=== PATIENT | female | born 1970 | race Caucasian/White ===

== ENCOUNTER 2020-12-25 11:04 | Day surgery (SDC) | payer SELFPAY ==
[2020-12-24 08:44] VITALS: BMI 35.6
[2020-12-25] MEDS ORDERED: SCOPOLAMINE HYDROBROMIDE 1 PATCH PATCH.TD72 ONE (12:22)
[2020-12-25] MEDS ORDERED: ROCURONIUM BROMIDE 50 MG/5 ML SYRINGE ONE (12:45)
[2020-12-25] MEDS ORDERED: MIDAZOLAM HCL 2 MG/2 ML SINGLE DOSE VIAL ONE ×2 (12:45→14:26)
[2020-12-25] MEDS ORDERED: PROPOFOL 20 ML ONE ×2 (12:45→14:14)
[2020-12-25] MEDS ORDERED: fentaNYL CITRATE 250 MCG/5 ML VIAL ONE (12:45)
[2020-12-25] MEDS ORDERED: GENTAMICIN SO4 80 MG/2 ML VIAL ONE (12:53)
[2020-12-25] MEDS ORDERED: ceFAZolin SODIUM 1 GM VIAL ONE (12:53)
[2020-12-25] MEDS ORDERED: SUCCINYLCHOLINE CHLORIDE 200 MG/10 ML SYRINGE ONE (13:04)
[2020-12-25] MEDS ORDERED: BUPIVACAINE HCL/PF 0.25% (2.5MG/ML) 10 ML VIAL ONE (13:46)
[2020-12-25] MEDS ORDERED: NEOSTIGMINE METHYLSULFATE 0.5 MG/1 ML - 10 ML MDV ONE (14:20)
[2020-12-25] MEDS ORDERED: GLYCOPYRROLATE 0.2 MG/1 ML VIAL ONE (14:20)
[2020-12-25] MEDS ORDERED: ONDANSETRON 4 MG/2 ML VIAL IVPUSH PRN ×2 (14:21→15:06)
[2020-12-25] MEDS ORDERED: PROMETHAZINE HCL 25 MG/1 ML VIAL IVPUSH PRN (14:21)
[2020-12-25] MEDS ORDERED: oxyCODONE HCL 5 MG TABLET PO PRN ×2 (14:21→15:06)
[2020-12-25] MEDS ORDERED: BUPIVACAINE HCL/PF 0.25% (2.5MG/ML) 10 ML VIAL IJ ONE (14:30)
[2020-12-25] MEDS ORDERED: LACTATED RINGERS SOLUTION 1,000 ML IV SCH (14:30)
[2020-12-25] MEDS ORDERED: ACETAMINOPHEN 1000 MG/100 ML VIAL (NON FORMULARY) IVPB ONE (15:07)
[2020-12-25 17:10] VITALS: BP 121/85; PULSE 63; TEMP 97
== END 2020-12-25 17:13 | disposition home or self-care (01) ==
LOC: FASU 11:04
PROVIDERS: ATTEND Surgery Plastic and Reconstructive Surgery
CPT/HCPCS: 88300-TC; 88304-TC; 94760; J0131